=== PATIENT | female | born 1950 | race Caucasian/White ===

== ENCOUNTER → 2017-05-03 | Day surgery (SDC) | payer BC ==
[~2017-05-03] MED LIST: Lactated Ringers 1,000 ML IV SCH; Propofol 200 MG/20 ML SDV IV ONE
[2017-05-03 10:33] VITALS: BP 120/73
--- NOTE | 2017-05-03 12:48 | OR ---
DATE OF OPERATION: 05/03/2017 PREOPERATIVE DIAGNOSIS: FOLLOWUP POLYPS. POSTOPERATIVE DIAGNOSIS: FOLLOWUP POLYPS. SURGEON: Sixto Vanessa MD PROCEDURE: FULL-LENGTH COLONOSCOPY WITH POLYP REMOVAL X2. 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 COMPLICATIONS: None. SPECIMEN: Hyperplastic polyps x2. FINDINGS: 1. Full-length colonoscopy. 2. Minimal sigmoid diverticulosis. 3. Two small hyperplastic polyps. RECOMMENDATIONS: Routine colonoscopy in 10 years. INDICATIONS: The patient was in for a physical, Dr. Henderson. She had a colonoscopy 12 years ago and had two polyps removed. She never had a followup. She was due. DESCRIPTION OF PROCEDURE: The patient was prepped and draped, placed in left lateral decubitus position. A lubricated Olympus colonoscope was inserted and safely and easily advanced to the cecum. Direct visualization of the ileocecal valve and appendiceal orifice was accomplished. The bowel prep was excellent. Upon withdrawal of the scope, cecum and ascending colon appeared benign. Just at the hepatic flexure, the patient had a small flat hyperplastic polyp removed in its entirety with forceps biopsy x2. Proximal transverse colon was unremarkable. In the midportion of the transverse colon, the patient had a second small hyperplastic polyp also removed with forceps biopsy x2 in its entirety. The rest of the transverse and descending colons were completely benign. In the sigmoid and rectosigmoid junction, the patient had some very mild diverticular disease. No signs of any polyps, masses, ulcerations, or bleeding sites. No vascular abnormalities or signs of colitis. The rectal vault was unremarkable. Retroflexion of scope in the rectum showed no anal lesions. Air was then suctioned. Scope was removed without complication. DAVONTE/REHAN /[id number]
== END ==
LOC: CC.SDS 08:13
PROVIDERS: ATTEND Family Medicine
DX: Z12.11 Encounter for screening for malignant neoplasm of colon (principal); D12.3 Benign neoplasm of transverse colon; K57.30 Diverticulosis of large intestine without perforation or abscess without bleeding; E78.5 Hyperlipidemia, unspecified; E55.9 Vitamin D deficiency, unspecified; Z79.82 Long term (current) use of aspirin; Z79.899 Other long term (current) drug therapy; Z72.0 Tobacco use
CPT/HCPCS: 45380; J2704; J7120

== ENCOUNTER → 2018-02-28 | Day surgery (SDC) | payer MEDICARE, BC ==
[2018-02-28 10:00] VITALS: BP 130/64
--- NOTE | 2018-02-28 13:12 | OR ---
DATE OF OPERATION: 02/28/2018 PREOPERATIVE DIAGNOSIS: EPIGASTRIC PAIN. POSTOPERATIVE DIAGNOSIS: EPIGASTRIC PAIN. SURGEON: Sixto Vanessa MD PROCEDURE: EGD WITH BIOPSIES X3, MARIE. SURGEON: Sixto Vanessa M.D. ANESTHESIA: LOW ALTITUDE AIR DEFENSE GUNNER due to GERD. COMPLICATIONS: None. SPECIMEN: 1. Duodenal bulb biopsy x1. 2. Antral biopsy x2. 3. MARIE. FINDINGS: 1. Full-length EGD. 2. Minimal antral gastritis appears chronic in nature. 3. No gross active peptic ulcer disease. RECOMMENDATIONS: Medical followup with Dr. Hendesron. INDICATIONS: Ms. Webb has been having some persistent issues with diarrhea and some right upper quadrant/epigastric pain off and on for many months. Dr. Henderson sent her for EGD. DESCRIPTION OF PROCEDURE: The patient was prepped and draped, placed in the left lateral decubitus position. A lubricated Olympus gastroscope was inserted a bit and advanced to cricopharyngeus area and easily intubated in the esophagus. Esophageal lining was benign in its entire course. The Z-line was crisp and sharp around 40 cm. No hiatal hernia was present. No gross spontaneous reflux. No distal esophagitis, stricturing, ulceration, or Rinaldi's changes seen. The scope advanced into the stomach through the pylorus into the second portion of the duodenum. This and the duodenal bulb were completely benign. Did do a biopsy of the duodenal bulb, evaluate for any celiac disease. The scope was brought back into the stomach, retroflexed the upper fundus and cardia appeared completely benign upon straightening. The rest of the fundus appeared unremarkable. Throughout the length of the stomach I could find no polyps, mass, ulcerations, or bleeding sites. No signs of any active peptic ulcer disease. There was some very minimal chronic appearing distal gastritis of the antrum, but no signs of any active disease. Two biopsies were taken along with a MARIE test. Air was then suctioned and scope was removed without complication. DAVONTE/REHAN /[id number]
== END ==
LOC: CC.SDS 08:22
PROVIDERS: ATTEND Family Medicine
DX: K29.50 Unspecified chronic gastritis without bleeding (principal); R19.7 Diarrhea, unspecified; K21.9 Gastro-esophageal reflux disease without esophagitis; Z79.899 Other long term (current) drug therapy
CPT/HCPCS: 00731; 87081; 88305; J2704; J7120

== ENCOUNTER → 2018-09-26 | Day surgery (SDC) | payer MEDICARE, BC ==
[2018-09-26 09:13] VITALS: BP 139/72
--- NOTE | 2018-09-26 09:20 | OR ---
DATE OF OPERATION: 09/26/2018 PREOPERATIVE DIAGNOSIS: PERSISTENT DIARRHEA, ABNORMAL CT. POSTOPERATIVE DIAGNOSIS: PERSISTENT DIARRHEA, ABNORMAL CT. SURGEON: Sixto Vanessa MD PROCEDURE: FULL-LENGTH COLONOSCOPY WITH BIOPSIES X7. 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 COMPLICATIONS: None. SPECIMEN: Random biopsies x7. FINDINGS: 1. Full-length colonoscopy. 2. Thickening splenic flexure, descending colon. RECOMMENDATIONS: Followup pending path reports. INDICATIONS: The patient has been having some ongoing issues with diarrhea. Workup thus far negative. CT scan showed thickening around the splenic flexure and proximal descending colon. We elected to proceed with colonoscopy. DESCRIPTION OF PROCEDURE: The patient was prepped and draped, placed in the left lateral decubitus position. A lubricated Olympus colonoscope was inserted and easily advanced to the cecum. Direct visualization of the ileocecal valve and appendiceal orifice was accomplished. The bowel prep was adequate. Upon withdrawal of the scope throughout the length of the colon, the patient had no gross signs of obvious colitis, polyp, mass, ulceration, or bleeding sites. No vascular abnormalities or signs of diverticula. The area in question at the splenic flexure and proximal descending colon did not appear inflamed, but was a little thick, especially in the splenic flexure region. We did biopsy 2 areas there of the most client services representative region. We did have random biopsies from the cecum to the rectum, totalling 7. Retroflexion of the scope in the rectal vault showed no perianal lesions. Air was then suctioned and the scope removed without complication. DAVONTE/REHAN /[id number]
== END ==
LOC: CC.SDS 07:35
PROVIDERS: ATTEND Family Medicine
DX: R19.7 Diarrhea, unspecified (principal); M19.90 Unspecified osteoarthritis, unspecified site; K21.9 Gastro-esophageal reflux disease without esophagitis; E78.5 Hyperlipidemia, unspecified; G43.909 Migraine, unspecified, not intractable, without status migrainosus; M81.8 Other osteoporosis without current pathological fracture; E55.9 Vitamin D deficiency, unspecified; E04.1 Nontoxic single thyroid nodule; Z79.82 Long term (current) use of aspirin; Z79.899 Other long term (current) drug therapy
CPT/HCPCS: 45380; J2704; J7120; 00811; 88305